=== PATIENT | male | born 1970 | race Caucasian/White ===

== ENCOUNTER 2020-08-27 13:01 | Emergency (ER) | payer SELFPAY ==
[~2020-08-27] VITALS: Ht 182.9 cm; Wt 86.2 kg
[2020-08-27 13:01] VITALS: BP 133/70
--- NOTE | 2020-08-27 13:01 | NUR ---
Patient PATRICIA FRANSISCAS accompanied by Saúl POE for pre-booking medical evaluation, transferred to chair Elizabeth JOHN evaluating patient.
--- NOTE | 2020-08-27 13:15 | NUR ---
50/M epace for evaluation, accompanied by Saúl POE for prebooking. Pt has no medical complaint at this time. Pt reports he has open sores to left arm x4 months. Denies pain. No erythema or drainage noted.
[2020-08-27] MEDS ORDERED: BACITRACIN OINT 500 UNITS/GM PKT TP ONE (13:20)
[2020-08-27 13:30] VITALS: BP 133/70
--- NOTE | 2020-08-27 13:30 | NUR ---
PATIENT EXAMINED BY DR. KAN. PATIENT MEDICALLY CLEARED AND RELEASED IN CUSTODY IN STABLE CONDITION. ORIGINAL PRE-BOOK FORM GIVEN TO OFFICER JOSEPH. D/C INSTRUCTIONS GIVEN TO OFFICER LUCIUS WITH RX FOR BACITRACIN TP OINTMENT.
== END 2020-08-27 13:30 ==
LOC: MED 13:01 → EDBD 13:01 → MED 13:30
DX: R50.9 Fever, unspecified (principal); Z02.89 Encounter for other administrative examinations; Z48.01 Encounter for change or removal of surgical wound dressing
CPT/HCPCS: 99283